=== PATIENT | female | born 1940 | race Hispanic/Latino ===

== ENCOUNTER → 2018-12-14 | Outpatient (CLI) | payer MEDICARE ==
--- NOTE | 2018-12-14 14:44 | Diagnostic Imaging Report ---
PROCEDURE:C-SPINE COMPLETE COMPARISON:None. INDICATIONS:FELL 3-4 WEEKS AGO, PAIN IN BACK OF NECK FINDINGS: The lateral view is visualized from the skull base to the top of T1. No acute, displaced fracture or subluxation. Soft tissue, ligamentous, and spinal cord abnormalities cannot be excluded by plain radiography. There is multilevel disc space narrowing, endplate sclerosis, and marginal disc osteophyte complexes affecting C3-4 through C6-7. Mild left-sided foraminal stenosis at C3-4, and C4-5 is suspected. Prevertebral soft tissues are of normal thickness. Atlantoaxial interval is within normal limits. The patient is nearly edentulous with mandibular surgical hardware. Electronic hearing device is present overlying the left ear. CONCLUSION: No acute osseous abnormality. Soft tissue, ligamentous, and spinal cord injuries cannot be excluded on the basis of plain radiography. Advanced multilevel degenerative disc changes with left-sided foraminal stenoses. Cervical spine MRI should be considered for further evaluation if there is clinical concern for radiculopathy. Dictated by: Jose Garcia M.D. on 12/14/2018 at 14:48 Electronically approved by: Jose Garcia M.D. on 12/14/2018 at 14:48
--- NOTE | 2018-12-14 14:46 | Diagnostic Imaging Report ---
PROCEDURE:X-RAY RIGHT SHOULDER, COMPLETE COMPARISON:None. INDICATIONS:FELL 3-4 WEEKS AGO, PAIN TO RIGHT ELBOW FINDINGS: Examination is limited as the patient refused positioning for external rotation view. No acute, displaced fracture or dislocation. The humeral head projects appropriately adjacent to the glenoid. Moderate acromioclavicular and glenohumeral joint space narrowing with marginal osteophytosis in the setting of background diffuse osteopenia. Soft tissues are unremarkable. CONCLUSION: Limited single AP internal rotation view shows no acute displaced fracture. Dictated by: Jose Garcia M.D. on 12/14/2018 at 14:50 Electronically approved by: Jose Garcia M.D. on 12/14/2018 at 14:50
== END ==
LOC: RAD 13:05
PROVIDERS: ATTEND Family Medicine
DX: M54.2 Cervicalgia (principal); M25.511 Pain in right shoulder; W19.XXXA Unspecified fall, initial encounter
CPT/HCPCS: 72050

== ENCOUNTER → 2019-05-18 | Outpatient (CLI) | payer MEDICARE, OTHER | LOC: RAD 09:50 | PROVIDERS: ATTEND Family Medicine | DX: M79.605 Pain in left leg (principal); M79.604 Pain in right leg | CPT/HCPCS: 93970 ==